=== PATIENT | female | born 1950 | race Two or more races ===

== ENCOUNTER 2019-08-01 12:36 | Outpatient (CLI) | payer OTHER ==
[~2019-08-01 12:36] MED LIST: AMBIEN10 MG; COZAAR100 MG; METFORMIN HCL500 MG; MONTELUKAST SOD10 MG; NEURONTIN300 MG PO; NORVASC10 MG; TRAMADOL HCL50 MG; VITAMIN D31000 UNIT; XANAX1 MG; ZOLOFT50 MG
== END 2019-08-01 12:41 | disposition home or self-care (01) ==
LOC: RAD 12:36
PROVIDERS: ATTEND Ophthalmology
DX: Z98.41 Cataract extraction status, right eye (principal); H25.011 Cortical age-related cataract, right eye

== ENCOUNTER 2020-11-09 13:24 | Outpatient (CLI) | payer OTHER | END 2020-11-09 13:36 | disposition home or self-care (01) | LOC: MAMO-SONO 13:24 | DX: R07.89 Other chest pain (principal); R92.1 Mammographic calcification found on diagnostic imaging of breast; Z12.31 Encounter for screening mammogram for malignant neoplasm of breast ==

== ENCOUNTER 2020-11-09 15:29 | Outpatient (CLI) | payer OTHER | END 2020-11-09 15:55 | disposition home or self-care (01) | LOC: NUCLEAR 15:29 | DX: M85.89 Other specified disorders of bone density and structure, multiple sites (principal) ==

== ENCOUNTER → 2022-08-10 | Emergency (ER) | payer OTHER ==
[~2022-08-10] VITALS: Ht 160 cm; Wt 68.0 kg
== END | disposition left against medical advice (07) ==
LOC: ER 13:31
DX: Z53.21 Procedure and treatment not carried out due to patient leaving prior to being seen by health care provider (principal)

== ENCOUNTER 2023-10-24 12:11 | Outpatient (CLI) | payer OTHER | END 2023-10-24 12:25 | disposition home or self-care (01) | LOC: MAMO-SONO 12:11 | PROVIDERS: ATTEND Specialist | DX: E11.69 Type 2 diabetes mellitus with other specified complication (principal); E78.00 Pure hypercholesterolemia, unspecified; Z68.25 Body mass index [BMI] 25.0-25.9, adult; I10 Essential (primary) hypertension; N64.4 Mastodynia; N63.0 Unspecified lump in unspecified breast; Z12.31 Encounter for screening mammogram for malignant neoplasm of breast ==